=== PATIENT | male | born 1950 | race Caucasian/White ===

== ENCOUNTER → 2017-06-05 | Outpatient (CLI) | payer OTHER ==
--- NOTE | 2017-06-05 11:07 | XR ---
EXAMINATION TYPE: XR abdomen 1V , 2 VIEWS DATE OF EXAM ORDERED: 06/05/2017 HISTORY: N20.0 renal calculus. COMPARISON: None. FINDINGS: There is evidence of a previous anterior abdominal wall hernia repair. There are multiple calculi overlying the bladder. No definite renal calculi are seen. The abdominal gas pattern is akin l. IMPRESSION: 1. POSTSURGICAL CHANGE. 2. I SUSPECT BLADDER CALCULI.
== END ==
LOC: RADXRMAIN 10:07
PROVIDERS: ATTEND Urology
DX: N20.0 Calculus of kidney (principal); Z98.890 Other specified postprocedural states
CPT/HCPCS: 74000

== ENCOUNTER 2021-05-07 20:44 | Emergency (ER) | payer OTHER, MEDICARE ==
[2021-05-07 20:56] VITALS: RESP 18
[2021-05-07] MEDS ORDERED: DIPH,PERTUS(ACELL)TETVAC-LF 0.5 ML VIAL IM ONE (21:08)
[2021-05-07] MEDS ORDERED: IBUPROFEN 400 MG TAB PO STA (21:08)
[2021-05-07] MEDS ORDERED: MORPHINE SULFATE 4 MG/ML SYRINGE IM STA (21:08)
[2021-05-07] MEDS ORDERED: BACITRACIN OINT 1 EACH PACKET TOPICAL ONE (21:09)
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
[2021-05-07 22:25] VITALS: BP 167/100; PULSE 94; TEMP 98.5
== END 2021-05-07 22:20 | disposition home or self-care (01) ==
LOC: EC 20:44
DX: T25.012A Burn of unspecified degree of left ankle, initial encounter (principal); I10 Essential (primary) hypertension; E78.5 Hyperlipidemia, unspecified; X08.8XXA Exposure to other specified smoke, fire and flames, initial encounter
CPT/HCPCS: 90715; 96372; 90471; 99283; J2270